=== PATIENT | male | born 1945 | race Two or more races ===

== ENCOUNTER 2019-09-22 07:26 | Outpatient (CLI) | payer OTHER | END 2019-09-22 13:32 | disposition home or self-care (01) | LOC: MRI 07:26 | DX: M25.562 Pain in left knee (principal) | CPT/HCPCS: 73721 ==

== ENCOUNTER 2019-10-15 11:00 | Outpatient (CLI) | payer OTHER | END 2019-10-15 11:07 | disposition home or self-care (01) | LOC: NUCLEAR 11:00 | DX: M81.0 Age-related osteoporosis without current pathological fracture (principal) ==

== ENCOUNTER 2019-11-06 09:39 | Outpatient (CLI) | payer OTHER | END 2019-11-06 17:24 | disposition home or self-care (01) | LOC: LAB 09:39 | DX: D64.89 Other specified anemias (principal); E11.9 Type 2 diabetes mellitus without complications; E78.2 Mixed hyperlipidemia; I10 Essential (primary) hypertension; E03.8 Other specified hypothyroidism; E55.9 Vitamin D deficiency, unspecified; R97.20 Elevated prostate specific antigen [PSA]; M10.9 Gout, unspecified; M85.88 Other specified disorders of bone density and structure, other site; E21.2 Other hyperparathyroidism; E88.89 Other specified metabolic disorders; M81.8 Other osteoporosis without current pathological fracture; E56.1 Deficiency of vitamin K; N41.8 Other inflammatory diseases of prostate ==

== ENCOUNTER 2021-06-27 08:00 | Outpatient (CLI) | payer OTHER | END 2021-06-27 08:30 | disposition home or self-care (01) | LOC: PPH VACUNA 08:00 | PROVIDERS: ATTEND Emergency Medicine Pediatric Emergency Medicine | DX: Z23 Encounter for immunization (principal) ==

== ENCOUNTER 2022-01-02 08:00 | Outpatient (CLI) | payer OTHER | END 2022-01-02 08:30 | disposition home or self-care (01) | LOC: PPH VACUNA 08:00 | PROVIDERS: ATTEND Emergency Medicine Pediatric Emergency Medicine | DX: Z23 Encounter for immunization (principal) ==

== ENCOUNTER 2022-09-05 14:08 | Outpatient (CLI) | payer OTHER | END 2022-09-05 14:18 | disposition home or self-care (01) | LOC: PPH VACUNA 14:08 | PROVIDERS: ATTEND Emergency Medicine Pediatric Emergency Medicine | DX: Z23 Encounter for immunization (principal) ==

== ENCOUNTER 2023-06-05 13:12 | Outpatient (CLI) | payer OTHER | END 2023-06-05 13:54 | disposition home or self-care (01) | LOC: RAD 13:12 | PROVIDERS: ATTEND Radiology Diagnostic Radiology | DX: M70.22 Olecranon bursitis, left elbow (principal) ==

== ENCOUNTER 2023-07-06 11:12 | Outpatient (CLI) | payer OTHER | END 2023-07-06 11:22 | disposition home or self-care (01) | LOC: PPH VACUNA 11:12 | PROVIDERS: ATTEND Emergency Medicine Pediatric Emergency Medicine | DX: Z23 Encounter for immunization (principal) ==